=== PATIENT | female | born 1975 | race Caucasian/White ===

== ENCOUNTER 2023-03-02 03:36 | Day surgery (SDC) | payer OTHER, SELFPAY ==
[2023-02-27 10:58] VITALS: BMI 23.8
--- NOTE | 2023-02-27 11:23 | PC.NURSE ---
Report to the Outpatient Waiting Room, entrance under the green pavilion located off [facility], at time __11:30AM on date __03/02/23 . Planned Procedure Time: _1:30PM . Time changes happen often and if your time is changed the preop area will call you the afternoon before. - You and your visitor will be asked to self-screen and do not enter if you have any COVID symptoms. - A mask is optional within the hospital at this time. Patients may have clear liquids (water, carbonated beverages, clear teas, apple juice) until 3 hours prior to surgery with a maximum of 20 ounces. - No food from midnight until time of surgery Take the following medications with a SIP of water the morning of surgery: ____NONE DO NOT STOP ANY OF YOUR OTHER PRESCRIPTION MEDICATIONS PRIOR TO SURGERY ?EXCEPT THE FOLLOWING Medications to discontinue per physician __HOLD ALL VITAMINS/SUPPLEMENTS STARTING NOW, 02/27/23. Please no make-up, nail uzbek, hairspray, perfume, deodorant, or body powder the day of surgery. No jewelry (including any body piercings) or valuables the day of surgery, leave them at home. Please take a shower or bath the night before, or the morning of, surgery with an antibacterial soap. Wear comfortable, loose fitting clothing. - Jewelry must be removed prior to entering the operating room. Rings and piercings that are not removed may be cut off. - The hospital will not accept responsibility for valuables. - Please leave all valuables, including medications, at home the day of surgery. If you are going home after surgery, a licensed special client bus driver must drive you home. - NO public transportation without another adult if you receive anesthesia. - We recommend that an adult stay with you for 24 hours following discharge. - We also recommend that you do not drive, make important decision, drink alcoholic beverages, or take any drugs that were not prescribed by your health care provider for at least 24 hours after your discharge time. Follow any additional instructions given to you from your surgeon. If you or anyone in your household have experienced Covid symptoms in the past week, please notify your surgeon or the nurse liaison at the phone number below for possible testing. Telephone instructions given to ___PATIENT and asked if any additional questions and then verbalized understanding. Patient advised to call surgeon office or pre surgery nurse liaison [phone] if any additional questions.
--- NOTE | 2023-03-02 09:51 | WPDHPUPDATE1 ---
History and Physical Update Update Date/Time: 03/02/23 09:51 History and Physical has been reviewed, including an updated exam of the patient. There are NO changes in the patient's condition. Risks, benefits, and alternatives have been discussed and questions answered. Patient agrees to proceed with procedure.
--- NOTE | 2023-03-02 09:51 | PM.HPGS ---
History of Present Illness History of Present Illness Consent: Risks, benefits, and alternatives have been discussed and questions answered. Patient agrees to proceed with procedure. Chief complaint: menorrhagia Narrative: Breanna Villarreal is a 47 year old female with prolonged spotting as well as heavier cycles. Patient states she was using diapers as her menstrual pad and passes small clots with tissue. 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 The patient presented as a new patient in February to our office. The patient has had a prior ultrasound with no obvious abnormalities. It was recommended to undergo D&C hysteroscopy. Risks of infection, bleeding, perforation, and possible pathology were reviewed. Due to the patient's having prior x3 with no vaginal births she was given Cytotec 1000mcg for 3 nights prior to procedure. Patient voices understanding and agrees to proceed. Review of Systems Review of Systems: not repeated day of surgery; patient states no changes in status PMFSH Past Medical History Medical History (Updated 03/02/23 @ 09:56 by Lori Liu MD) Lichen planopilaris Surgical History Surgical History (Updated 03/02/23 @ 09:55 by Lori Liu MD) History of bilateral salpingectomy 2016 with 3rd History of X3 Status post Mohs surgery On her head for basal cell 2018 Social History Social History Smoking status: Never smoker Alcohol intake: current Drinks per week: 1 Substance use: never Living arrangements: with family Additional living arrangements comments: [employer] Spiritual care concerns: No Meds Home Medications and Allergies Home Medications Medication Instructions Recorded Confirmed Type biotin 5,000 mcg-lutein 10 mg 1 tablet PO DAILY 02/27/23 02/27/23 History tablet (Biotin Plus) cetirizine 10 mg tablet 10 mg PO BID 02/27/23 02/27/23 History clobetasol 0.05 % scalp solution 1 applic topical BID 02/27/23 02/27/23 History hydroxychloroquine 200 mg tablet 200 mg PO DAILY 02/27/23 02/27/23 History minoxidil 5 % topical solution 1 ml topical BID 02/27/23 02/27/23 History misoprostol 200 mcg tablet 1,000 mcg PO HS 02/27/23 02/27/23 History jtekmaaqrias-We-rwbw-minerals 1 tablet PO DAILY 02/27/23 02/27/23 History omega 7-mxb-voi-fish oil 1,200 mg 1 cap PO DAILY 02/27/23 02/27/23 History (144 mg-216 mg) capsule (Fish Oil) Allergies Allergy/AdvReac Type Severity Reaction Status Date / Time No Known Allergies Allergy Verified 02/27/23 10:52 Exam Const: General: healthy appearing and alert Orientation/consciousness: patient oriented x3 Resp: Effort & Inspection: normal respiratory effort Auscultation: clear to auscultation bilaterally Cardio: Rate: regular rate Rhythm: regular rhythm GI: GI Palp: Yes Soft to palpation, No Tenderness to palpation present (GI) and No Palpable mass present : General: Yes deferred (Deferred to operating room) Neuro: General: patient oriented x3 Assessment and Plan Assessment and plan (1) Menorrhagia: Code(s): N92.0 - Excessive and frequent menstruation with regular cycle Status: Acute Assessment and Plan: Plan to proceed with D&C hysteroscopy
[2023-03-02 11:40] VITALS: BP 115/77; PULSE 65; RESP 16; TEMP 36.4; O2SAT 99; BMI 22.9
--- NOTE | 2023-03-02 11:58 | P.PNAN_ITS ---
Anes - Initial Pre Proc Eval Procedure: Operation Date: 03/02/23 13:30 Proposed Procedures p Hysteroscopy Dilation and Curettage - Lori Liu MD Date/Time: 03/02/23 11:58 Surgeon: Lori Liu MD Pre Op Diagnosis: menorrhagia Patient Data Age: 47 Gender: F Height: 1.6 m Weight: 61 kg Allergies Allergy/AdvReac Type Severity Reaction Status Date / Time No Known Allergies Allergy Verified 02/27/23 10:52 Home Medications Medication Instructions Recorded Confirmed Type biotin 5,000 mcg-lutein 10 mg 1 tablet PO DAILY 02/27/23 02/27/23 History tablet (Biotin Plus) cetirizine 10 mg tablet 10 mg PO BID 02/27/23 02/27/23 History clobetasol 0.05 % scalp solution 1 applic topical BID 02/27/23 02/27/23 History hydroxychloroquine 200 mg tablet 200 mg PO DAILY 02/27/23 02/27/23 History minoxidil 5 % topical solution 1 ml topical BID 02/27/23 02/27/23 History misoprostol 200 mcg tablet 1,000 mcg PO HS 02/27/23 02/27/23 History tjnaezzafliu-Wl-akmi-minerals 1 tablet PO DAILY 02/27/23 02/27/23 History omega 5-vqm-ynq-fish oil 1,200 mg 1 cap PO DAILY 02/27/23 02/27/23 History (144 mg-216 mg) capsule (Fish Oil) Patient hx anesthesia problems: none Family hx anesthesia problems: none Results Review: All pre-operative results and documents have been reviewed as part of the pre- operative evaluation. [facility] Past Medical History Medical History Lichen planopilaris Surgical History Surgical History History of bilateral salpingectomy 2016 with 3rd History of X3 Status post Mohs surgery On her head for basal cell 2017 Social History Social History Smoking status: Never smoker Alcohol intake: current Drinks per week: 1 Substance use: never Living arrangements: with family Additional living arrangements comments: [employer] Spiritual care concerns: No Anes - Eval Final PreProcedure Day of Procedure 03/02/23 11:58 Patient weight: normal Heart: regular rate and rhythm Lungs: clear to auscultation Airway: Mallampati scale class II Neurological: alert and oriented Last oral intake: >/= 8 hours ASA classification: II Emergent: no Anesthetic plan: proceed Anesthesia type and monitoring: general GIVS and standard monitoring Results Review: All pre-operative results and documents have been reviewed as part of the pre- operative evaluation. Informed Consent: The patient's anesthetic plan and its attendant risks and benefits were discussed with the patient/family/POA. Questions were solicited and answers provided to the satisfaction of the patient/family/POA.
[2023-03-02] MEDS: LACTATED RINGERS 1,000 ML 30 ML IV CONT (12:05)
[2023-03-02] MEDS: ACETAMINOPHEN 500 MG TABLET 1000 MG PO (12:14)
--- NOTE | 2023-03-02 13:48 | P.OP_ITS ---
Procedure Note - Detailed Date of Procedure 03/02/23 Pre-op Diagnosis menorrhagia Post-op Diagnosis Same Procedure Performed D&C hysteroscopy Surgeon Lori Liu MD Anesthesia MAC Findings Uterus sounds to 7.5cm and appears grossly normal. Description of Procedure The patient is taken to the operating room and placed under anesthesia in the dorsal lithotomy position. She was prepped and draped in the usual sterile fashion. [place] speculum was placed in the vagina and the cervix grasped the anterior lip with a tenaculum. The uterus is sounded to 7.5cm. The diagnostic hysteroscope was placed and with no abnormalities noted it is removed. The d ouble 0 curette is used to curette the endometrium until a good uterine cry was noted in all areas. All instruments were then removed. Sponge, needle, and instrument counts are correct per the OR staff. Patient is awakened from anesthesia taken to recovery in stable condition. Estimated Blood Loss 5 Drains No Packing No Pathology Yes (Endometrial curettings) Complications No immediate complications Condition Stable Disposition PACU
[2023-03-02 13:50] VITALS: BP 91/60; PULSE 65; RESP 16; O2SAT 96
[2023-03-02 14:20] VITALS: BP 107/68; PULSE 68; RESP 16
== END 2023-03-02 14:40 | disposition home or self-care (01) ==
PROVIDERS: PCP Family Medicine; Visit Provider Obstetrics & Gynecology Gynecology
PROC: 0U5B8ZZ Destruction of Endometrium, Via Natural or Artificial Opening Endoscopic (ICD-10-PCS; CPT 58563; principal; 2023-03-02 13:30)
DX: N92.0 Excessive and frequent menstruation with regular cycle (principal); L66.1 Lichen planopilaris
CPT/HCPCS: 58558; 88305; A9270; J1100; J1885; J2250; J2405; J2704; J3010; J7120